=== PATIENT | female | born 1985 | race African-American/Black ===

== ENCOUNTER 2018-02-28 00:35 | Inpatient (IN) | payer SELFPAY ==
[~2018-02-28] VITALS: Ht 167.6 cm; Wt 70.2 kg
[2018-02-28 03:46] LABS: HEMATOCRIT 29.6 % (36.0-46.0); HEMOGLOBIN 9.4 G/DL (11.9-15.5); MCHC 31.8 G/DL (30.0-36.0); MCV 81.8 FL (83-99); PLATELET COUNT 288 K/uL (156-360); RBC DIS.WIDTH-CV 18.1 % (11.8-14.6); RBC DIS.WIDTH-SD 54.7 % (39-53); RED BLOOD COUNT 3.62 M/uL (3.80-5.20)
[2018-02-28 03:49] LABS: IMM.RETIC FRACTION 11.9 % (3-19); RETIC HGB EQUIVALENT 31.1 (28-36); RETICULOCYTE COUNT 2.3 % (0.5-1.8)
[2018-02-28 03:53] LABS: CHLORIDE 102 mEq/L (99-109); POTASSIUM 3.9 mEq/L (3.7-5.4); SODIUM 139 mEq/L (136-147)
[2018-02-28 03:54] LABS: GLUCOSE 210 mg/dL (70-99)
[2018-02-28 03:58] LABS: CREATININE 0.9 mg/dL (0.6-1.3); GFR ESTIMATE (CALCULATED) > 59 mL/min/
[2018-02-28 03:59] LABS: UREA NITROGEN (BUN) 11 mg/dL (9-23)
[2018-02-28 04:07] LABS: TROP-I INTERPRETATION NEGATIVE; TROPONIN-I 0.01 ng/mL (0.0-0.30)
[2018-02-28 04:51] LABS: LACTATE DEHYDROGENASE 193 IU/L (20-246)
[2018-02-28] MEDS ORDERED: FOLIC ACID1 MG PO (08:14)
[2018-02-28] MEDS ORDERED: HYDREA500 MG PO (08:15)
[2018-02-28] MEDS ORDERED: BENADRYL50 MG PO (08:15)
[2018-02-28] MEDS ORDERED: DILAUDID8 MG PO (08:15)
[2018-02-28] MEDS ORDERED: PROMETHAZINE HC25 M1 PO (08:16)
[2018-02-28 14:14] VITALS: BP 140/93
[2018-02-28 15:33] VITALS: BP 103/55
[2018-02-28 19:52] VITALS: BP 135/94
[2018-02-28 23:51] VITALS: BP 123/93
[2018-03-01 01:54] LABS: TROP-I INTERPRETATION NEGATIVE; TROPONIN-I 0.01 ng/mL (0.0-0.30)
[2018-03-01 03:47] VITALS: BP 130/70
[2018-03-01 06:26] LABS: ALBUMIN 3.4 g/dL (3.2-4.8); CHLORIDE 104 mEq/L (99-109); POTASSIUM 4.5 mEq/L (3.7-5.4); SODIUM 138 mEq/L (136-147)
[2018-03-01 06:28] LABS: GLUCOSE 138 mg/dL (70-99); TOTAL PROTEIN 8.2 g/dL (6.4-8.3)
[2018-03-01 06:30] LABS: TOTAL BILIRUBIN 0.3 mg/dL (0.0-1.0)
[2018-03-01 06:32] LABS: ALKALINE PHOSPHATASE 123 IU/L (3-129); CREATININE 0.9 mg/dL (0.6-1.3); GFR ESTIMATE (CALCULATED) > 59 mL/min/
[2018-03-01 06:33] LABS: UREA NITROGEN (BUN) 9 mg/dL (9-23)
[2018-03-01 06:34] LABS: AST (GOT) 17 IU/L (2-34)
[2018-03-01 06:35] LABS: ALT (GPT) 14 IU/L (3-49)
[2018-03-01 07:10] VITALS: BP 128/88
[2018-03-01 08:57] LABS: BASOPHIL (%) 0.5 % (0-1); EOSINOPHIL (%) 2.6 % (0-5); EOSINOPHIL COUNT 0.1 K/uL (0-0.3); HEMATOCRIT 30.2 % (36.0-46.0); HEMOGLOBIN 9.3 G/DL (11.9-15.5); IMMATURE GRANULOCYTE (%) 0.2 % (0.0-0.7); LYMPHOCYTE (%) 33.7 % (15-42); LYMPHOCYTE COUNT 1.4 K/uL (1.0-2.8); MCH 26.1 PG (29.0-34.0); MCHC 30.8 G/DL (30.0-36.0); MCV 84.8 FL (83-99); MONOCYTE (%) 7.9 % (3-12); MONOCYTE COUNT 0.3 K/uL (0-0.8); NEUTROPHIL (%) 55.1 % (45-76); NEUTROPHIL COUNT 2.3 K/uL (1.8-6.4); RBC DIS.WIDTH-CV 18.4 % (11.8-14.6); RBC DIS.WIDTH-SD 57.2 % (39-53); RED BLOOD COUNT 3.56 M/uL (3.80-5.20); WHITE BLOOD COUNT 4.2 K/uL (4.1-10.2)
[2018-03-01 09:14] LABS: PLAT.SUFFICIENCY ADEQUATE; PLATELET COUNT 284 K/uL (156-360)
[2018-03-01 10:45] VITALS: BP 105/76
[2018-03-01 15:55] VITALS: BP 114/76
[2018-03-01 20:08] VITALS: BP 116/76
[2018-03-01 23:54] VITALS: BP 110/67
[2018-03-02 03:32] VITALS: BP 118/71
[2018-03-02 07:24] LABS: HEMATOCRIT 28.9 % (36.0-46.0); HEMOGLOBIN 8.7 G/DL (11.9-15.5); MCH 25.2 PG (29.0-34.0); MCHC 30.1 G/DL (30.0-36.0); MCV 83.8 FL (83-99); PLATELET COUNT 251 K/uL (156-360); RBC DIS.WIDTH-CV 17.9 % (11.8-14.6); RBC DIS.WIDTH-SD 55.7 % (39-53); RED BLOOD COUNT 3.45 M/uL (3.80-5.20); WHITE BLOOD COUNT 3.8 K/uL (4.1-10.2)
[2018-03-02 07:44] LABS: CHLORIDE 102 MEQ/L (99-109); CREATININE 1.2 MG/DL (0.6-1.3); GFR ESTIMATE (CALCULATED) > 59 mL/min/; GLUCOSE 115 mg/dL (70-99); POTASSIUM 4.3 MEQ/L (3.7-5.4); SODIUM 139 MEQ/L (136-147); UREA NITROGEN (BUN) 11 mg/dL (9-23)
[2018-03-02 08:07] VITALS: BP 120/71
[2018-03-02 10:44] LABS: ABSOLUTE RETICULOCYTE CT. 0.1 M/uL (0.02-0.08); IMM.RETIC FRACTION 12.1 % (3-19); RETIC HGB EQUIVALENT 32.5 (28-36); RETICULOCYTE COUNT 2.2 % (0.5-1.8)
[2018-03-02 12:13] VITALS: BP 97/56
[2018-03-02 15:56] VITALS: BP 99/58
[2018-03-02 21:11] VITALS: BP 100/65
[2018-03-03 00:13] VITALS: BP 110/63
[2018-03-03 03:37] VITALS: BP 99/54
[2018-03-03 07:25] VITALS: BP 97/52
[2018-03-03 11:12] VITALS: BP 109/61
[2018-03-03 14:14] LABS: HGBE Erythrocyte Cnt 3.67 Mill/uL (3.80-5.10); HGBE Hematocrit 30.4 % (35.0-45.0); HGBE Hemoglobin 9.6 g/dL (11.7-15.5); HGBE MCH 26.2 pg (27.0-33.0); HGBE MCV 82.8 FL (80.0-100.0); HGBE RDW 21.3 % (11.0-15.0)
[2018-03-03 16:20] VITALS: BP 111/66
[2018-03-03 20:14] LABS: HEMATOCRIT 26.1 % (36.0-46.0); HEMOGLOBIN 8.3 G/DL (11.9-15.5); MCH 26.3 PG (29.0-34.0); MCHC 31.8 G/DL (30.0-36.0); MCV 82.6 FL (83-99); PLATELET COUNT 236 K/uL (156-360); RBC DIS.WIDTH-CV 17.9 % (11.8-14.6); RBC DIS.WIDTH-SD 54.4 % (39-53); RED BLOOD COUNT 3.16 M/uL (3.80-5.20); WHITE BLOOD COUNT 4.4 K/uL (4.1-10.2)
[2018-03-03 20:48] LABS: ALBUMIN 3.3 G/DL (3.2-4.8); ALKALINE PHOSPHATASE 116 IU/L (3-129); ALT (GPT) 8 IU/L (3-49); AST (GOT) 12 IU/L (2-34); CHLORIDE 103 MEQ/L (99-109); CREATININE 0.9 MG/DL (0.6-1.3); DIRECT BILIRUBIN 0.1 mg/dL (0.0-0.3); GFR ESTIMATE (CALCULATED) > 59 mL/min/; GLUCOSE 137 mg/dL (70-99); POTASSIUM 4.2 MEQ/L (3.7-5.4); SODIUM 138 MEQ/L (136-147); TOTAL BILIRUBIN 0.3 MG/DL (0.0-1.0); TOTAL PROTEIN 7.2 G/DL (6.4-8.3); UREA NITROGEN (BUN) 11 mg/dL (9-23)
[2018-03-03 20:49] LABS: LACTATE DEHYDROGENASE 134 IU/L (20-246)
[2018-03-03 23:21] VITALS: BP 123/76
[2018-03-04] VITALS (7 sets, daily range): BP systolic 102–187; BP diastolic 54–97
[2018-03-04 06:14] LABS: HEMATOCRIT 24.7 % (36.0-46.0); HEMOGLOBIN 7.6 G/DL (11.9-15.5); MCH 25.7 PG (29.0-34.0); MCHC 30.8 G/DL (30.0-36.0); MCV 83.4 FL (83-99); PLATELET COUNT 213 K/uL (156-360); RBC DIS.WIDTH-CV 18.2 % (11.8-14.6); RBC DIS.WIDTH-SD 55.5 % (39-53); RED BLOOD COUNT 2.96 M/uL (3.80-5.20); WHITE BLOOD COUNT 4.2 K/uL (4.1-10.2)
[2018-03-04 14:49] LABS: IRON 40 MCG/DL (35-150); TRANSFERRIN (TIBC) 242.5 mg/dL (215-380); TRANSFERRIN SATUR. 16 % (20-55)
[2018-03-04 15:02] LABS: FERRITIN 36 NG/ML (10-291)
[2018-03-04 15:04] LABS: FOLIC ACID (FOLATE) 13.4 NG/ML (5.0-22.0)
[2018-03-04 19:55] LABS: HEMATOCRIT 29.8 % (36.0-46.0); HEMOGLOBIN 9.3 G/DL (11.9-15.5); MCH 26.3 PG (29.0-34.0); MCHC 31.2 G/DL (30.0-36.0); MCV 84.2 FL (83-99); PLATELET COUNT 218 K/uL (156-360); RBC DIS.WIDTH-CV 17.7 % (11.8-14.6); RBC DIS.WIDTH-SD 54.7 % (39-53); RED BLOOD COUNT 3.54 M/uL (3.80-5.20); WHITE BLOOD COUNT 4.2 K/uL (4.1-10.2)
[2018-03-05 06:12] LABS: HEMATOCRIT 28.9 % (36.0-46.0); HEMOGLOBIN 9.2 G/DL (11.9-15.5); MCH 26.7 PG (29.0-34.0); MCHC 31.8 G/DL (30.0-36.0); MCV 83.8 FL (83-99); PLATELET COUNT 210 K/uL (156-360); RBC DIS.WIDTH-CV 17.9 % (11.8-14.6); RBC DIS.WIDTH-SD 54.4 % (39-53); RED BLOOD COUNT 3.45 M/uL (3.80-5.20); WHITE BLOOD COUNT 4.3 K/uL (4.1-10.2)
[2018-03-05 07:05] VITALS: BP 117/56
[2018-03-05] MEDS ORDERED: FERROUS SULFAT325 MG PO (10:04)
== END 2018-03-05 14:54 | disposition home or self-care (01) | DRG 812 ==
LOC: EME 00:35 → EDOF 08:18 → 5EAST 08:18 → ENRESERV 08:23 → CANRESERV 08:23 → ENRESERV 11:29 → 5EAST 14:01
PROVIDERS: Hospitalist; Internal Medicine; Physician Assistant; Student in an Organized Health Care Education/Training Program
PROC: B543ZZA Ultrasonography of Right Jugular Veins, Guidance (ICD-10-PCS; principal; 2018-03-01)
PROC: 02H633Z Insertion of Infusion Device into Right Atrium, Percutaneous Approach (ICD-10-PCS; principal; 2018-03-01)
PROC: 30243N1 Transfusion of Nonautologous Red Blood Cells into Central Vein, Percutaneous Approach (ICD-10-PCS; 2018-03-04)
DX: D50.0 Iron deficiency anemia secondary to blood loss (chronic) (principal); F11.20 Opioid dependence, uncomplicated; Z76.5 Malingerer [conscious simulation]; Z88.0 Allergy status to penicillin; Z88.5 Allergy status to narcotic agent
CPT/HCPCS: 71045; 71046; 80048; 80053; 80076; 82607; 82728; 82746; 82948; 83021 90; 83540; 83615; 84466; 84484; 85014 90; 85018 90; 85025; 85027; 85041 90; 85046; 86850; 86900; 86901; 86920; 93005; 99281; 99285; C1751; C1753; J1644; J3010; J7030; P9016